=== PATIENT | female | born 1955 | race Caucasian/White ===

== ENCOUNTER → 2017-03-03 | Outpatient (CLI) | payer OTHER ==
--- NOTE | 2017-03-05 08:38 | MM ---
Reason for exam: screening (asymptomatic). Last mammogram was performed 2 years and 9 months ago. Physical Findings: A clinical breast exam by your physician is recommended on an annual basis and results should be correlated with mammographic findings. MG Screening Mammo w CAD Bilateral CC and MLO view(s) were taken. Prior study comparison: June 02, 2014, bilateral MG screening mammo w CAD. There are scattered fibroglandular densities. No significant changes when compared with prior studies. ASSESSMENT: Negative, BI-RAD 1 RECOMMENDATION: Routine screening mammogram of both breasts in 1 year.
== END | disposition home or self-care (01) ==
LOC: RADMAMWWP 16:42
PROVIDERS: ATTEND Family Medicine
DX: Z12.31 Encounter for screening mammogram for malignant neoplasm of breast (principal)

== ENCOUNTER 2017-05-06 09:25 | Day surgery (SDC) | payer OTHER ==
[2017-05-01 14:54] VITALS: BMI 28.8
[~2017-05-06 09:25] MED LIST: AMPICILLIN 1,000 MG in SODIUM CHLORIDE 0.9% 50 ML IVPB ONE; DEXAMETHASONE SOD PHOSPHATE 10 MG/ML 1 ML VIAL IV ONE; GENTAMICIN IVPB ONE; HYDROmorphone 0.5 MG/0.5 ML SYRINGE IVP PRN; LIDOCAINE 1% 20 ML VIAL (10MG/ML) FOR IV START INTRADERMA PRN; MIDAZOLAM 2 MG/2 ML VIAL IV PRN; ONDANSETRON 4 MG/2 ML VIAL IVP ONE; SCOPOLAMINE 1.5MG/72HR PATCH TRANSDERM ONE; SODIUM CHLORIDE 0.9% IVPB ONE
[2017-05-06] MEDS: LACTATED RINGERS 1,000 ML IV SCH ×2 (09:44→12:38)
[2017-05-06] MEDS ORDERED: LIDOCAINE 1% INJ 10MG/ML (20 ML MDV) ONE (10:33)
[2017-05-06] MEDS ORDERED: SUCCINYLCHOLINE CHLORIDE 100 MG/5 ML SYR IV ONE (10:33)
[2017-05-06] MEDS ORDERED: MIDAZOLAM 2 MG/2 ML VIAL ONE (10:33)
[2017-05-06] MEDS ORDERED: ePHEDrine SULFATE/0.9% NACL/PF 50 MG/5 ML SYRINGE IV ONE (10:33)
[2017-05-06] MEDS ORDERED: fentaNYL (PF) 50 MCG/ML 2 ML AMP ONE (10:33)
[2017-05-06] MEDS ORDERED: PHENYLEPHRINE-0.9% NACL SYG 1 MG/10 ML SYRINGE ONE (10:33)
[2017-05-06] MEDS ORDERED: PROPOFOL 10 MG/ML 20 ML VIAL IV ONE (10:33)
[2017-05-06] MEDS ORDERED: ONDANSETRON 4 MG/2 ML VIAL IVP PRN (10:41)
[2017-05-06] MEDS ORDERED: VASOPRESSIN 20 UNIT/ML 1 ML VIAL SQ ONE (10:49)
[2017-05-06] MEDS ORDERED: GENTAMICIN 80 MG in SODIUM CHLORIDE 0.9% 500 ML IRRIGATION ONE (10:53)
[2017-05-06] MEDS ORDERED: BACITRACIN 500 UNIT/GM OINT 28.4 GM TUBE TOPICAL ONE (10:58)
--- NOTE | 2017-05-06 11:08 | P.OP ---
Date of Procedure: 05/06/17 Preoperative Diagnosis: Stress urinary incontinence Postoperative Diagnosis: Same Procedure(s) Performed: Trans-obturator tape with obtryx 2 Anesthesia: ADWOA Surgeon: Vineet Martins Estimated Blood Loss (ml): 100 Pathology: none sent Condition: stable Disposition: PACU Indications for Procedure: The patient is a 62-year-old female with documented stress incontinence on history physical examination urodynamics. She comes for a trans-obturator tape Description of Procedure: Patient is brought to the operating suite she is given a successful general endotracheal anesthesia. She's placed in lithotomy position with a sterile prep and drape. The labia are sewn laterally with 2-0 silk a Headley catheters introduced sterilely. A vaginal speculum was placed. The anterior vaginal mucosa was elevated off the submucosa with 20 of Pitressin and 200 mL of normal saline. A midline suburethral incision is made. I dissect lateral the bladder neck bilaterally. I make 2 incisions in the inguinal crease at the level of the clitoris. I passed the trans-obturator tape introducers through these incisions through the obturator foramen around the issue pubic ramus into the vaginal space bilaterally. Make sure not to penetrate the vagina wall and I do not. I then remove the Headley catheter performed cystoscopy of the Foroblique lens and 19-Czech sheath. There is no evidence of injury to the bladder. I reintroduced the Headley. I attached the grafted introducers and pull the graft back through the obturator foramen bilaterally. Then sits in the mid urethra nicely. The redundant achieving is removed. The vaginal space is closed with a 3-0 Vicryl. The redundant graft at the inguinal crease was removed and this is closed with 4-0 Vicryl. A vaginal pack is place. The urine remains clear. The labial stitches are removed. The patient's awakened and returned recovery room good condition. She tolerated the procedure well and will be observed in the hospital postoperatively.
[2017-05-06] MEDS: KETOROLAC 30 MG/ML 1 ML VIAL IVP PRN ×2 (14:42→20:38)
[2017-05-06] MEDS: buPROPion 75 MG TAB PO SCH (20:47)
[2017-05-06] MEDS: METOPROLOL TARTRATE 25 MG TAB PO SCH (20:47)
[2017-05-06] MEDS: DEXTROSE 5%-0.45% NACL 1,000 ML IV SCH (22:00)
[2017-05-07 01:47] VITALS: TEMP 97.5
--- NOTE | 2017-05-07 06:35 | P.DS ---
Providers Attending physician: Vineet Martins Primary care physician: [facility] Course: The patient is a 62-year-old female admitted to the hospital 05/06/2017 for a trans-obturator tape for her stress urinary incontinence. The surgery was uneventful. The postoperative course is uneventful. Her vital signs are stable. The packing and catheter been removed this morning. If she voids well she'll be discharged home. She'll be discharged home care of her family regular diet limited activity. She'll be given a small prescription of [place] for pain. Postoperative instructions been given. She'll be seen in the office in one week. Perioperative laboratory examinations appropriate for the surgical procedure. Patient Condition at Discharge: Good Plan - Discharge Summary New Discharge Prescriptions: New HYDROcodone/APAP 5-325MG [[place] 5-325] 1 tab PO Q4HR PRN #14 tab PRN Reason: Pain Control No Action Metoprolol Tartrate [Lopressor] 25 mg PO BID buPROPion [Wellbutrin] 75 mg PO BID Sulfamethoxazole/Trimethoprim [Bactrim DS 800-160 mg] 1 each PO DAILY Discharge Medication List Metoprolol Tartrate [Lopressor] 25 mg PO BID 01/08/15 [History] buPROPion [Wellbutrin] 75 mg PO BID 05/01/17 [History] Sulfamethoxazole/Trimethoprim [Bactrim DS 800-160 mg] 1 each PO DAILY 05/04/17 [ History] HYDROcodone/APAP 5-325MG [[place] 5-325] 1 tab PO Q4HR PRN #14 tab 05/07/17 [Rx] Follow up Appointment(s)/Referral(s): Vineet Martins MD [STAFF PHYSICIAN] - 1 Week Discharge Disposition: HOME SELF-CARE
[2017-05-07 08:32] VITALS: BP 122/79; PULSE 76; RESP 20
[2017-05-07] MEDS ORDERED: SULFAMETHOX-TMP 800-160MG 1 EACH TAB PO SCH (09:00)
[2017-05-07] MEDS: KETOROLAC 30 MG/ML 1 ML VIAL IVP PRN (09:24)
[2017-05-07] MEDS: METOPROLOL TARTRATE 25 MG TAB PO SCH (09:32)
[2017-05-07] MEDS: buPROPion 75 MG TAB PO SCH (09:32)
[2017-05-07] MEDS: DEXTROSE 5%-0.45% NACL 1,000 ML IV SCH (09:57)
== END 2017-05-07 11:09 | disposition home or self-care (01) ==
LOC: OR 09:25 → 6PED 11:30 → OR 05-07 11:09
PROVIDERS: ATTEND Urology
DX: N39.3 Stress incontinence (female) (male) (principal); Z79.899 Other long term (current) drug therapy; I10 Essential (primary) hypertension; Z88.5 Allergy status to narcotic agent
CPT/HCPCS: 57288; C1771; J2250; J1580 ×2; J1100; J2405; J2001; J3010; J1885 ×2; J0290; J2370; J0330; J2704

== ENCOUNTER → 2018-02-17 | Outpatient (CLI) | payer OTHER ==
--- NOTE | 2018-02-19 07:16 | MM ---
Reason for exam: screening (asymptomatic). Last mammogram was performed 1 year ago. Physical Findings: A clinical breast exam by your physician is recommended on an annual basis and results should be correlated with mammographic findings. MG Screening Mammo w CAD Bilateral CC and MLO view(s) were taken. Prior study comparison: March 03, 2017, bilateral MG screening mammo w CAD. June 13, 2014, right breast MG work up mamm w CAD RT. The breast tissue is almost entirely fat. No significant changes when compared with prior studies. ASSESSMENT: Negative, BI-RAD 1 RECOMMENDATION: Routine screening mammogram of both breasts in 1 year.
== END | disposition home or self-care (01) ==
LOC: RADMAMWWP 14:27
PROVIDERS: ATTEND Family Medicine
DX: Z12.31 Encounter for screening mammogram for malignant neoplasm of breast (principal)
CPT/HCPCS: 77067

== ENCOUNTER → 2019-06-14 | Outpatient (CLI) | payer OTHER ==
--- NOTE | 2019-06-14 11:07 | EST ---
EXERCISE STRESS AGE: 64 SEX: F HT: 64" WT: 157 PROTOCOL: Angel Stress Test STAGE: 3 DURATION OF EXERCISE: 6:30 HEART RATE REST: 83 BLOOD PRESSURE REST: 149/98 MAXIMUM HEART RATE ACHIEVED: 133 MAXIMUM BLOOD PRESSURE: 235/89 85% MPHR: 133 100% MPHR: 156 METS: 7.9 INDICATIONS: Chest pain. Baseline EKG shows sinus rhythm, normal axis, normal intervals with poor R-wave progression. Patient exercised on Angel protocol for a total of 6.5 minutes achieving 8 METs, 85% of predicted maximal heart rate without chest pain or diagnostic ST-segment depression. CONCLUSION: 1. Average exercise tolerance. 2. Negative stress test by EKG criteria. MMODL / IJN: [id number] /
== END | disposition home or self-care (01) ==
LOC: RADNMMAIN 08:35
PROVIDERS: ATTEND Family Medicine
DX: R94.31 Abnormal electrocardiogram [ECG] [EKG] (principal)
CPT/HCPCS: 93017

== ENCOUNTER → 2019-06-22 | Outpatient (CLI) | payer OTHER ==
--- NOTE | 2019-06-22 11:59 | XR ---
EXAMINATION TYPE: XR lumbar spine 2 or 3V DATE OF EXAM: 06/22/2019 CLINICAL HISTORY: Back pain TECHNIQUE: Frontal and lateral images of the lumbar spine are obtained. COMPARISON: None FINDINGS: There are 5 lumbar type vertebral bodies identified. Very minimal levoscoliosis of the lum bar spine. No evidence of acute fracture or dislocation. Grade 1 anterolisthesis of L4 on L5 measures 5 mm. Mild multilevel small anterior osteophytes and endplate sclerosis are seen. Facet arthropathy from L4 through S1 body heights and disk space heights are within normal limits. The overlying soft tissue appears unremarkable. IMPRESSION: 1. No acute fracture or dislocation is seen in the lumbar spine. 2. Grade 1 anterolisthesis of L4 on L5, likely on a degenerative basis. 3. Mild degenerative disc disease of the lumbar spine and minimal levoscoliosis.
== END | disposition home or self-care (01) ==
LOC: RADXRMAIN 11:13
PROVIDERS: ATTEND Family Medicine
DX: M51.16 Intervertebral disc disorders with radiculopathy, lumbar region (principal); M43.16 Spondylolisthesis, lumbar region; M41.86 Other forms of scoliosis, lumbar region
CPT/HCPCS: 72100

== ENCOUNTER → 2019-07-22 | Outpatient (CLI) | payer OTHER ==
--- NOTE | 2019-07-25 12:22 | MM ---
Reason for exam: screening (asymptomatic). Last mammogram was performed 1 year and 5 months ago. History: Patient is postmenopausal. Taking estrogen. Physical Findings: A clinical breast exam by your physician is recommended on an annual basis and results should be correlated with mammographic findings. MG Screening Mammo w CAD Bilateral CC and MLO view(s) were taken. Prior study comparison: February 17, 2018, bilateral MG screening mammo w CAD. March 03, 2017, bilateral MG screening mammo w CAD. There are scattered fibroglandular densities. No suspicious abnormality. No significant changes when compared with prior studies. ASSESSMENT: Negative, BI-RAD 1 RECOMMENDATION: Routine screening mammogram of both breasts in 1 year.
== END ==
LOC: RADMAMWWP 09:13
PROVIDERS: ATTEND Family Medicine
DX: Z12.31 Encounter for screening mammogram for malignant neoplasm of breast (principal)
CPT/HCPCS: 77067

== ENCOUNTER → 2020-08-09 | Outpatient (CLI) | payer MEDICARE, OTHER ==
--- NOTE | 2020-08-09 17:54 | BD ---
EXAMINATION TYPE: Axial Bone Density DATE OF EXAM: 08/09/2020 COMPARISON: NONE CLINICAL HISTORY: 65 YR OLD FEMALE......ICD-10 CODE: Z78.0 MENOPAUSAL STATE Height: 62.5 Weight: 152 FRAX RISK QUESTIONS: Secondary Osteoporosis: YES 3. Menopause before 45: YES Current Tobacco Use: YES RISK FACTORS HISTORY OF: Postmenopausal woman: YES, AT ABOUT 44 YRS OLD, NATURAL Hyperparathyroidism: NO Adrenal Insufficiency: NO MEDICATIONS: Additional Medications: BP MEDS, ZOLOFT, STATIN FOR CHOLESTEROL, VIT D Additional History: HYPERTENSION, CHOLESTEROL EXAM MEASUREMENTS: Bone mineral densitometry was performed using the [employer] System. Bone mineral density as measured about the Lumbar spine is: ----- L1-L4(G/cm2): 1.177 T Score Values are as follows: ----- L1: -0.6 ----- L2: -0.6 ----- L3: 0.2 ----- L4: 0.6 ----- L1-L4: 0.0 Bone mineral density FIRST BONE DENSITY AT [facility] Bone mineral density about the R hip (g/cm2): 1.038 Bone mineral density about the L hip (g/cm2): 0.982 T Score values are as follows: -----R Neck: -1.0 -----L Neck: -1.0 -----R Total: 0.2 -----L Total: -0.2 Bone mineral density FIRST BONE DENSITY AT [facility] FRAX%s: THERE IS A 8.0% CHANCE FOR A MAJOR OSTEOPOROTIC FX AND A 0.6% FOR HIP.....PROBABILITY FOR FX IN 10 YRS TIME IMPRESSION: Osteopenia (T Score between -2.5 and -1). There is slightly increased risk of fracture and the patient may be considered for treatment. Re-Screen 2-5 years. NOTE: T-SCORE=SD OF THE YOUNG ADULT MEAN.
== END | disposition home or self-care (01) ==
LOC: RADBDWWP 08:39
PROVIDERS: ATTEND Family Medicine
DX: M85.80 Other specified disorders of bone density and structure, unspecified site (principal); Z78.0 Asymptomatic menopausal state
CPT/HCPCS: 77080

== ENCOUNTER 2020-10-17 09:44 | Day surgery (SDC) | payer MEDICARE, OTHER ==
[2020-10-16 09:19] VITALS: BMI 25.7
[~2020-10-17 09:44] MED LIST changes: -AMPICILLIN 1,000 MG in SODIUM CHLORIDE 0.9% 50 ML IVPB ONE; -DEXAMETHASONE SOD PHOSPHATE 10 MG/ML 1 ML VIAL IV ONE; -GENTAMICIN IVPB ONE; -HYDROmorphone 0.5 MG/0.5 ML SYRINGE IVP PRN; +LACTATED RINGERS 1,000 ML IV SCH; -LIDOCAINE 1% 20 ML VIAL (10MG/ML) FOR IV START INTRADERMA PRN; -MIDAZOLAM 2 MG/2 ML VIAL IV PRN; -ONDANSETRON 4 MG/2 ML VIAL IVP ONE; -SCOPOLAMINE 1.5MG/72HR PATCH TRANSDERM ONE; -SODIUM CHLORIDE 0.9% IVPB ONE
[2020-10-17 10:36] VITALS: TEMP 98.3
[2020-10-17] MEDS ORDERED: PROPOFOL 10 MG/ML 20 ML VIAL IV ONE (11:13)
[2020-10-17] MEDS ORDERED: LIDOCAINE 1% INJ 10MG/ML (20 ML MDV) ONE (11:13)
[2020-10-17] MEDS ORDERED: LACTATED RINGERS 1,000 ML IV ONE ×2 (11:15→11:16)
--- NOTE | 2020-10-17 11:29 | P.PCN ---
Date of Procedure: 10/17/20 Procedure(s) Performed: BRIEF HISTORY: Patient is a 65-year-old pleasant male scheduled for an elective colonoscopy as a part of evaluation of prior history of colon polyps. Last colonoscopy was 5 years ago. PROCEDURE PERFORMED: Colonoscopy. PREOPERATIVE DIAGNOSIS: history of colon polyps IV sedation per Anesthesia. PROCEDURE: After informed consent was obtained, the patient, was brought into the endoscopy unit. IV sedation was administered by Anesthesia under continuous monitoring. Digital rectal examination was normal. Initially the Olympus CF-160 flexible video colonoscope was then inserted in the rectum, gradually advanced into the cecum without any difficulty. Careful examination was performed as the scope was gradually being withdrawn. Ileocecal valve and the appendiceal orifice were visualized and appeared normal. Prep was excellent. Mucosa of the cecum, ascending colon, transverse colon, descending colon, sigmoid colon, and rectum appeared normal. Scattered sigmoid diverticulosis. Retroflexion was performed in the rectum and small internal hemorrhoids were seen. The patient tolerated the procedure well. IMPRESSION: Normal-appearing colon from rectum to cecum with no evidence of colorectal neoplasia . Scattered sigmoid diverticulosis Small internal hemorrhoids\ RECOMMENDATIONS: Findings of this examination were discussed with the patient as well as her family. She was advised to repeat screening colonoscopy in 10 years.
[2020-10-17 11:54] VITALS: BP 146/54; PULSE 73; RESP 18
== END 2020-10-17 12:04 | disposition home or self-care (01) ==
LOC: ORWHC2ENDO 09:44
PROVIDERS: ATTEND Internal Medicine Gastroenterology
DX: Z12.11 Encounter for screening for malignant neoplasm of colon (principal); K57.30 Diverticulosis of large intestine without perforation or abscess without bleeding; K64.8 Other hemorrhoids; I10 Essential (primary) hypertension; E78.5 Hyperlipidemia, unspecified; Z79.899 Other long term (current) drug therapy; Z86.010 Personal history of colon polyps; Z87.891 Personal history of nicotine dependence; Z88.5 Allergy status to narcotic agent
CPT/HCPCS: J2001; J2704; G0105; 45378

== ENCOUNTER → 2020-10-18 | Outpatient (CLI) | payer MEDICARE, OTHER ==
--- NOTE | 2020-10-22 09:29 | MM ---
Reason for exam: screening (asymptomatic). Last mammogram was performed 1 year and 3 months ago. History: Patient is postmenopausal. Physical Findings: A clinical breast exam by your physician is recommended on an annual basis and results should be correlated with mammographic findings. MG Screening Mammo w CAD Bilateral CC and MLO view(s) were taken. Prior study comparison: July 22, 2019, bilateral MG screening mammo w CAD. February 17, 2018, bilateral MG screening mammo w CAD. There are scattered fibroglandular densities. No significant changes when compared with prior studies. ASSESSMENT: Negative, BI-RAD 1 RECOMMENDATION: Routine screening mammogram of both breasts in 1 year.
== END | disposition home or self-care (01) ==
LOC: RADMAMWWP 10:53
PROVIDERS: ATTEND Family Medicine
DX: Z12.31 Encounter for screening mammogram for malignant neoplasm of breast (principal); Z78.0 Asymptomatic menopausal state
CPT/HCPCS: 77067

== ENCOUNTER → 2022-05-14 | Outpatient (CLI) | payer MEDICARE, OTHER ==
--- NOTE | 2022-05-14 09:19 | MM ---
Reason for Exam: Follow-up at short interval from prior study. Last screening mammogram was performed 6 month(s) ago. Patient History: Menarche at age 13. First Full-Term at age 24. Postmenopausal. Risk Values: Ame 5 year model risk: 1.5%. NCI Lifetime model risk: 5.2%. Prior Study Comparison: 07/22/2019 Bilateral Screening Mammogram, [facility]. 10/18/2020 Bilateral Screening Mammogram, [facility]. 10/24/2021 Bilateral Screening Mammogram, [facility]. Tissue Density: Left: There are scattered fibroglandular densities. Findings: Analyzed By CAD. No persistent suspicious nodularity is identified in the upper outer anterior left breast. Scattered benign calcifications are present. No significant interval change is evident. Overall Assessment: Benign, BI-RAD 2 Management: Screening Mammogram of both breasts in 6 months. A clinical breast exam by your physician is recommended on an annual basis and results should be correlated with mammographic findings. This exam should not preclude additional follow-up of suspicious palpable abnormalities. Results were given to the patient verbally at the time of exam. Electronically signed and approved by: Gideon Hamilton D.O. Radiologis
--- NOTE | 2022-05-14 10:16 | USB ---
Reason for Exam: Follow-up at short interval from prior study. Patient History: Menarche at age 13. First Full-Term at age 24. Postmenopausal. Risk Values: Ame 5 year model risk: 1.5%. NCI Lifetime model risk: 5.2%. Technique: Method: Targeted. Prior Study Comparison: 07/22/2019 Bilateral Screening Mammogram, [facility]. 10/18/2020 Bilateral Screening Mammogram, [facility]. 10/24/2021 Bilateral Screening Mammogram, [facility]. Findings: The upper outer quadrant of the left breast, the axilla of the left breast and the retroareolar of the left breast were scanned. No solid or cystic masses are identified. No abnormality to correlate with prior mammographic nodularity. Overall Assessment: Negative, BI-RAD 1 Management: Screening Mammogram of both breasts in 6 months. A clinical breast exam by your physician is recommended on an annual basis and results should be correlated with mammographic findings. This exam should not preclude additional follow-up of suspicious palpable abnormalities. ??Results were given to the patient verbally at the time of exam. Electronically signed and approved by: Gideon Hamilton D.O. Radiologis
== END | disposition home or self-care (01) ==
LOC: RADMAMWWP 08:50
PROVIDERS: ATTEND Family Medicine
DX: R92.8 Other abnormal and inconclusive findings on diagnostic imaging of breast (principal); N63.20 Unspecified lump in the left breast, unspecified quadrant; Z78.0 Asymptomatic menopausal state
CPT/HCPCS: 77065; 76642; G0279; 77061

== ENCOUNTER → 2022-11-04 | Outpatient (CLI) | payer MEDICARE, OTHER ==
--- NOTE | 2022-11-04 11:08 | BD ---
EXAMINATION TYPE: Axial Bone Density DATE OF EXAM: 11/04/2022 CLINICAL HISTORY: 67 years old Female. ICD-10 CODE: M85.80 DISORDER OF BONE DENSITY Comparison: Prior bone scan 2020 Height: 62.1 Weight: 146 FRAX RISK QUESTIONS: Family History (Parent hip fracture): no fx Secondary Osteoporosis: yes 3. Menopause before 45: yes Current Tobacco Use: yes RISK FACTORS HISTORY OF: Family History of Osteoporosis: yes, sister, mother no hip fxs Postmenopausal woman: yes, 44 yrs old Hyperparathyroidism: no Adrenal Insufficiency: no MEDICATIONS: Additional Medications: bp meds, statin for cholesterol, vit d, calcium, multivitamin, Additional History: hypertension, cholesterol, EXAM MEASUREMENTS: Bone mineral densitometry was performed using the [employer] System. Bone mineral density as measured about the Lumbar spine is: ----- L1-L4(G/cm2): 1.133 T Score Values are as follows: ----- L1: -0.7 ----- L2: -1.2 ----- L3: -0.7 ----- L4: 0.6 ----- L1-L4: -0.4 Z Score Values are as follows: ----- L1: 0.9 ----- L2: 0.4 ----- L3: 0.9 ----- L4: 2.1 ----- L1-L4: 1.2 Bone mineral density has: Decreased -3.7% since study of: 08.09.2020 Bone mineral density about the R hip (g/cm2): 1.037 Bone mineral density about the L hip (g/cm2): 0.984 T Score values are as follows: -----R Neck: -0.9 -----L Neck: -1.7 -----R Total: 0.2 -----L Total: -0.2 Z Score values are as follows: -----R Neck: 0.7 -----L Neck: 0.3 -----R Total: 1.5 -----L Total: 1.1 Bone mineral density has: Increased 0.1% since study of: 08.09.2020 FRAX%s: The graph provided illustrates a 9.0% chance for a major osteoporotic fx and a 0.9% chance fo r the hips probability for fx in 10 years time. IMPRESSION: Osteopenia (T Score between -2.5 and -1) is now present. There is slightly increased risk of fracture and the patient may be considered for treatment. Re-Screen 2-5 years. NOTE: T-SCORE=SD OF THE YOUNG ADULT MEAN.
--- NOTE | 2022-11-05 09:57 | MM ---
Reason for Exam: Screening (asymptomatic). Last screening mammogram was performed 12 month(s) ago. Patient History: Menarche at age 13. First Full-Term at age 24. Postmenopausal. Patient has history of breast feeding. Risk Values: Ame 5 year model risk: 1.5%. NCI Lifetime model risk: 5.2%. Prior Study Comparison: 10/18/2020 Bilateral Screening Mammogram, [facility]. 10/24/2021 Bilateral Screening Mammogram, [facility]. 05/14/2022 Left MG 3D diag mammo w/cad LT, [facility]. Tissue Density: There are scattered fibroglandular densities. Findings: Analyzed By CAD. There is no suspicious group of microcalcifications or new suspicious mass in either breast. Benign calcifications within the left breast. Overall Assessment: Benign, BI-RAD 2 Management: Screening Mammogram of both breasts in 1 year. A clinical breast exam by your physician is recommended on an annual basis and results should be correlated with mammographic findings. Electronically signed and approved by: Sixto Lopez D.O.
== END | disposition home or self-care (01) ==
LOC: RADMAMWWP 09:43
PROVIDERS: ATTEND Family Medicine
DX: Z12.31 Encounter for screening mammogram for malignant neoplasm of breast (principal); M85.80 Other specified disorders of bone density and structure, unspecified site; Z78.0 Asymptomatic menopausal state
CPT/HCPCS: 77063; 77067; 77080

== ENCOUNTER → 2023-08-10 | Outpatient (CLI) | payer MEDICARE ==
--- NOTE | 2023-08-10 14:11 | XR ---
EXAMINATION TYPE: XR knee complete LT DATE OF EXAM: 08/10/2023 COMPARISON: None HISTORY: 68-year-old female M2 5.562, left knee pain TECHNIQUE: AP, oblique, and lateral views FINDINGS: No acute fracture, subluxation, or dislocation. No knee joint effusion. Extensor mechanism appears in tact. IMPRESSION: No acute osseous abnormality seen.
== END | disposition home or self-care (01) ==
LOC: RADXRMAIN 08:48
PROVIDERS: ATTEND Family Medicine
DX: M25.562 Pain in left knee (principal)

== ENCOUNTER → 2023-12-22 | Outpatient (CLI) | payer MEDICARE ==
--- NOTE | 2023-12-23 14:19 | MM ---
Reason for Exam: Screening (asymptomatic). Last mammogram was performed 1 year(s) and 2 month(s) ago. Patient History: Menarche at age 13. First Full-Term at age 24. Postmenopausal. Patient has history of breast feeding. Risk Values: Ame 5 year model risk: 1.5%. NCI Lifetime model risk: 5.0%. Prior Study Comparison: 10/24/2021 Bilateral Screening Mammogram, [facility]. 05/14/2022 Left MG 3D diag mammo w/cad LT, [facility]. 11/04/2022 Bilateral MG 3D screening mammo w/cad, [facility]. Tissue Density: The breasts are almost entirely fatty. Findings: Analyzed By CAD. Right breast: There is no suspicious group of microcalcifications or new suspicious mass. Left breast: There is no suspicious group of microcalcifications or new suspicious mass. Overall Assessment: Negative, BI-RAD 1 Management: Screening Mammogram of both breasts in [address] [facility] will attempt to contact patient to return for supplemental views and ultrasound if indicated. Patient should continue monthly self-breast exams. A clinical breast exam by your physician is recommended on an annual basis. This exam should not preclude additional follow-up of suspicious palpable abnormalities. Note on Ame scores and lifetime risk: 1. A Ame score greater than 3% is considered moderate risk. If this is the case, consider specialist referral to assess eligibility for a risk reducing agent. 2. If overall lifetime risk for the development of breast cancer is 20% or higher, the patient may qualify for future screening with alternating mammogram and breast MRI. Electronically signed and approved by: Cole Gordillo DO
== END | disposition home or self-care (01) ==
LOC: RADMAMWWP 08:42
PROVIDERS: ATTEND Family Medicine
DX: Z12.31 Encounter for screening mammogram for malignant neoplasm of breast (principal); Z78.0 Asymptomatic menopausal state
CPT/HCPCS: 77063; 77067

== ENCOUNTER → 2025-01-18 | Outpatient (CLI) | payer MEDICARE ==
--- NOTE | 2025-01-18 13:12 | BD ---
EXAMINATION TYPE: Axial Bone Density DATE OF EXAM: 01/18/2025 CLINICAL HISTORY: 69 years old Female. ICD-10 CODE: Z78.0 ASYMPTOMATIC MENOPAUSAL STA , Additional History: Height: 5 ft 3 in Weight: 134 FRAX RISK QUESTIONS: Alcohol (3 or more units per day): no Family History (Parent hip fracture): no Glucocorticoids (More than 3mos): no (Ex: prednisone, prednisolone, methylprednisolone, dexamethasone, and hydrocortisone). History of Fracture in Adulthood: no Secondary Osteoporosis: 1. Type 1 Diabetes: no 2. Hyperthyroidism: no 3. Menopause before 45: yes 4. Malnutrition: no 5. Chronic liver disease: no Rheumatoid Arthritis: no Current Tobacco Use: yes RISK FACTORS HISTORY OF: Surgery to Spine/Hip(right/left)/Wrist (right/left): no MEDICATIONS: Thyroid Medications: none Osteoporosis Medications: none EXAM MEASUREMENTS: Bone mineral densitometry was performed using the [employer] System. Bone mineral density as measured about the Lumbar spine is: ----- L1-L4(G/cm2): 1.149 T Score Values are as follows: ----- L1: -0.5 ----- L2: -0.6 ----- L3: -0.2 ----- L4: 0.1 ----- L1-L4: -0.3 Z Score Values are as follows: ----- L1: 1.3 ----- L2: 1.2 ----- L3: 1.6 ----- L4: 1.9 ----- L1-L4: 1.6 Bone mineral density has: increased 1.4 % since study of: 2022 Bone mineral density about the R hip (g/cm2): 0.930 Bone mineral density about the L hip (g/cm2): 0.870 T Score values are as follows: -----R Neck: -0.8 -----L Neck: -1.2 -----R Total: 0.0 -----L Total: -0.5 Z Score values are as follows: -----R Neck: 1.0 -----L Neck: 0.6 -----R Total: 1.5 -----L Total: 1.1 Bone mineral density has: decreased -3.6 % since study of: 2022 FRAX%s: The graph provided illustrates a 9.1 % chance for a major osteoporotic fx and a 1.8 % chance for the hips probability for fx in 10 years time. IMPRESSION: Osteopenia (T Score between -2.5 and -1). There is slightly increased risk of fracture and the patient may be considered for treatment. Re-Screen 2-5 years. NOTE: T-SCORE=SD OF THE YOUNG ADULT MEAN. [facility], , 01/18/2025 1:09 PM
--- NOTE | 2025-01-18 15:11 | MM ---
Reason for Exam: Screening (asymptomatic). Last mammogram was performed 1 year(s) and 1 month(s) ago. Patient History: Menarche at age 13. First Full-Term at age 24. Postmenopausal. Patient has history of breast feeding. Risk Values: Ame 5 year model risk: 1.5%. NCI Lifetime model risk: 4.8%. Prior Study Comparison: 02/17/2018 Bilateral Screening Mammogram, [facility]. 07/22/2019 Bilateral Screening Mammogram, [facility]. 10/18/2020 Bilateral Screening Mammogram, [facility]. 10/24/2021 Bilateral Screening Mammogram, [facility]. 05/14/2022 Left MG 3D diag mammo w/cad LT, [facility]. 11/04/2022 Bilateral MG 3D screening mammo w/cad, [facility]. 12/22/2023 Bilateral MG 3D screening mammo w/cad, [facility]. Tissue Density: There are scattered areas of fibroglandular density. Findings: Analyzed By CAD. Chronic nodularity central outer right breast. There is no suspicious group of microcalcifications or new suspicious mass in either breast. Overall Assessment: Benign, BI-RAD 2 Management: Screening Mammogram of both breasts in 1 year. Patient should continue monthly self-breast exams. A clinical breast exam by your physician is recommended on an annual basis. This exam should not preclude additional follow-up of suspicious palpable abnormalities. Note on Ame scores and lifetime risk: 1. A Ame score greater than 3% is considered moderate risk. If this is the case, consider specialist referral to assess eligibility for a risk reducing agent. 2. If overall lifetime risk for the development of breast cancer is 20% or higher, the patient may qualify for future screening with alternating mammogram and breast MRI. [facility], , 01/18/2025 3:08 PM. Electronically signed and approved by: Jacob Castro M.D. Radiologist
== END | disposition home or self-care (01) ==
LOC: RADMAMWWP 09:38
PROVIDERS: ATTEND Family Medicine
DX: Z12.31 Encounter for screening mammogram for malignant neoplasm of breast (principal); R92.323 Mammographic fibroglandular density, bilateral breasts; M85.89 Other specified disorders of bone density and structure, multiple sites; Z78.0 Asymptomatic menopausal state
CPT/HCPCS: 77063; 77067; 77080